=== PATIENT | male | born 1990 | race Two or more races ===

== ENCOUNTER 2021-10-09 15:54 | Emergency (ER) | payer SELFPAY ==
[~2021-10-09] VITALS: Ht 157.5 cm; Wt 72.7 kg
[2021-10-09 16:41] VITALS: BP 115/66
[2021-10-09] MEDS ORDERED: buprenorphine/naloxone 8MG-2MG SUBlingual film SL STA (17:42)
[2021-10-09] MEDS ORDERED: buprenorphine/naloxone 8MG-2MG SUBlingual film SL ONE (18:50)
== END 2021-10-09 19:12 | disposition home or self-care (01) ==
LOC: ER 15:54
DX: F11.13 Opioid abuse with withdrawal (principal)
CPT/HCPCS: 99283